=== PATIENT | female | born 1960 | race Caucasian/White ===

== ENCOUNTER 2016-10-10 10:01 | Outpatient (CLI) | payer OTHER | END 2016-10-10 18:25 | disposition home or self-care (01) | LOC: SUS 10:01 | PROVIDERS: ATTEND Family Medicine | DX: N63 Unspecified lump in breast (principal) | CPT/HCPCS: 76642 ==

== ENCOUNTER 2018-07-04 13:41 | Outpatient (CLI) | payer OTHER | END 2018-07-04 20:55 | disposition home or self-care (01) | LOC: SMA 13:41 | PROVIDERS: ATTEND Family Medicine | DX: Z12.31 Encounter for screening mammogram for malignant neoplasm of breast (principal) | CPT/HCPCS: 77067 ==